=== PATIENT | female | born 1950 | race African-American/Black ===

== ENCOUNTER 2018-03-19 00:18 | Observation (INO) | payer OTHER ==
[~2018-03-19] VITALS: Ht 170.2 cm; Wt 65.0 kg
[2018-03-19 00:46] LABS: HEMATOCRIT 38.9 % (36.0-46.0); HEMOGLOBIN 13.1 G/DL (11.9-15.5); MCH 29.4 PG (29.0-34.0); MCHC 33.7 G/DL (30.0-36.0); MCV 87.2 FL (83-99); PLATELET COUNT 279 K/uL (156-360); RBC DIS.WIDTH-CV 14.6 % (11.8-14.6); RED BLOOD COUNT 4.46 M/uL (3.80-5.20); WHITE BLOOD COUNT 11.3 K/uL (4.1-10.2)
[2018-03-19 00:58] LABS: CHLORIDE 108 mEq/L (99-109); POTASSIUM 3.7 mEq/L (3.7-5.4); SODIUM 143 mEq/L (136-147)
[2018-03-19 01:00] LABS: GLUCOSE 89 mg/dL (70-99)
[2018-03-19 01:03] LABS: CREATININE 1.1 mg/dL (0.6-1.3); GFR ESTIMATE (CALCULATED) > 59 mL/min/
[2018-03-19 01:04] LABS: UREA NITROGEN (BUN) 18 mg/dL (9-23)
[2018-03-19 01:11] LABS: TROP-I INTERPRETATION NEGATIVE; TROPONIN-I < 0.01 ng/mL (0.0-0.30)
[2018-03-19] MEDS ORDERED: COZAAR25 MG PO (01:56)
[2018-03-19] MEDS ORDERED: METOPROLOL TART25 MG PO (01:56)
[2018-03-19] MEDS ORDERED: LO-DOSE ASPIRIN81 M2 PO (01:56)
[2018-03-19 06:47] LABS: TROP-I INTERPRETATION NEGATIVE; TROPONIN-I 0.02 ng/mL (0.0-0.30)
[2018-03-19 12:01] VITALS: BP 157/85
[2018-03-19 15:09] VITALS: BP 119/61
[2018-03-19 19:31] VITALS: BP 146/72
[2018-03-19 23:48] VITALS: BP 137/65
[2018-03-20 04:53] VITALS: BP 124/60
[2018-03-20 05:25] LABS: BASOPHIL (%) 1.3 % (0-1); BASOPHIL COUNT 0.1 K/uL (0-0.1); EOSINOPHIL (%) 11.3 % (0-5); EOSINOPHIL COUNT 0.9 K/uL (0-0.3); HEMATOCRIT 37.8 % (36.0-46.0); HEMOGLOBIN 12.4 G/DL (11.9-15.5); IMMATURE GRANULOCYTE (%) 0.3 % (0.0-0.7); LYMPHOCYTE (%) 34.7 % (15-42); LYMPHOCYTE COUNT 2.7 K/uL (1.0-2.8); MCH 28.2 PG (29.0-34.0); MCHC 32.8 G/DL (30.0-36.0); MCV 86.1 FL (83-99); MONOCYTE (%) 8.4 % (3-12); MONOCYTE COUNT 0.7 K/uL (0-0.8); NEUTROPHIL COUNT 3.5 K/uL (1.8-6.4); PLATELET COUNT 264 K/uL (156-360); RBC DIS.WIDTH-CV 14.4 % (11.8-14.6); RBC DIS.WIDTH-SD 45.6 % (39-53); RED BLOOD COUNT 4.39 M/uL (3.80-5.20); WHITE BLOOD COUNT 7.9 K/uL (4.1-10.2)
[2018-03-20 05:56] LABS: CHLORIDE 109 MEQ/L (99-109); CREATININE 0.9 MG/DL (0.6-1.3); GFR ESTIMATE (CALCULATED) > 59 mL/min/; GLUCOSE 70 mg/dL (70-99); SODIUM 140 MEQ/L (136-147); UREA NITROGEN (BUN) 20 mg/dL (9-23)
[2018-03-20 07:50] VITALS: BP 159/76
[2018-03-20] MEDS ORDERED: LOSARTAN-HCTZ1 EACH PO (09:33)
== END 2018-03-20 11:31 | disposition home or self-care (01) ==
LOC: EME → EDBD 00:18 → EME 00:18 → EDOF 04:53 → ENRESERV 04:59 → 4SOUTH 11:58 → ENPENDDIS 03-20 → 4SOUTH 03-20 11:31
PROVIDERS: Hospitalist; Student in an Organized Health Care Education/Training Program
DX: R07.9 Chest pain, unspecified (principal); R94.31 Abnormal electrocardiogram [ECG] [EKG]; R06.02 Shortness of breath; R00.1 Bradycardia, unspecified; I10 Essential (primary) hypertension; F17.200 Nicotine dependence, unspecified, uncomplicated; J45.909 Unspecified asthma, uncomplicated; Z82.5 Family history of asthma and other chronic lower respiratory diseases; Z79.82 Long term (current) use of aspirin
CPT/HCPCS: 71046; 80048; 83880; 84484; 85025; 85027; 93005; 99202; 99281; 99284; G0378; J1650